=== PATIENT | male | born 1995 | race American Indian/Alaskan Native ===

== ENCOUNTER 2017-06-06 11:26 | Emergency (ER) | payer MEDICAID ==
[2017-06-06 11:34] VITALS: BP 160/84
--- NOTE | 2017-06-06 11:54 | EDM.PDOC ---
ED HPI GENERAL MEDICAL PROBLEM - General Chief Complaint: Respiratory Problem Stated Complaint: ? UPPER RESP INFECTION Time Seen by Provider: 06/06/17 11:45 Source of Information: Reports: Patient History Limitations: Reports: No Limitations - History of Present Illness INITIAL COMMENTS - FREE TEXT/NARRATIVE: This 21 yo male patient reports to the ED with a 3 day history of increasing congestion (head and chest). The patient reports he has been taking OTC medications with little to no symptom relief. The patient reports his child was diagnosed with an URI last week and believes he may have the same thing. Onset Date: 06/04/17 Duration: Constant, Getting Worse Location: Reports: Head, Chest Quality: Reports: Dull, Pressure Severity: Moderate Improves with: Reports: None Worsens with: Reports: None Associated Symptoms: Reports: No Other Symptoms Treatments [employer]: Reports: Other Medication(s) Headache Pain Score (Numeric/FACES): 5 - Related Data Allergies Allergy/AdvReac Type Severity Reaction Status Date / Time No Known Allergies Allergy Verified 06/06/17 11:39 Home Meds: Home Meds . [No Known Home Meds] 06/06/17 [History] Past Medical History - Past Health History Medical/Surgical History: Denies Medical/Surgical History Musculoskeletal History: Reports: Fracture - Infectious Disease History Infectious Disease History: Reports: Chicken Pox Social & Family History - Family History Family Medical History: Noncontributory - Tobacco Use Smoking Status *Q: Never Smoker Second Hand Smoke Exposure: Yes - Caffeine Use Caffeine Use: Reports: Soda - Alcohol Use Days Per Week of Alcohol Use: 0 - Recreational Drug Use Recreational Drug Use: No ED ROS GENERAL - Review of Systems Review Of Systems: ROS reveals no pertinent complaints other than HPI. ED EXAM, GENERAL - Physical Exam Exam: See Below Exam Limited By: No Limitations General Appearance: Alert, WD/WN, Mild Distress Eye Exam: Bilateral Eye: EOMI, Normal Inspection, PERRL Ears: Normal External Exam, Normal Canal, Hearing Grossly Normal, Normal TMs Nose: Normal Inspection, Normal Mucosa, No Blood, Clear Rhinorrhea Throat/Mouth: Normal Inspection, Normal Lips, Normal Teeth, Normal Gums, Normal Voice, No Airway Compromise, Other (posterior pharynx erythematous) Head: Atraumatic, Normocephalic Neck: Normal Inspection, Supple, Non-Tender, Full Range of Motion Respiratory/Chest: No Respiratory Distress, Lungs Clear, Normal Breath Sounds, No Accessory Muscle Use, Chest Non-Tender Cardiovascular: Normal Peripheral Pulses, Regular Rate, Rhythm, No Edema, No Gallop, No JVD, No Murmur, No Rub GI/Abdominal: Normal Bowel Sounds, Soft, Non-Tender, No Organomegaly, No Distention, No Abnormal Bruit, No Mass (Male) Exam: Deferred Rectal (Males) Exam: Deferred Back Exam: Normal Inspection, Full Range of Motion, NT Extremities: Normal Inspection, Normal Range of Motion, Non-Tender, Normal Capillary Refill, No Pedal Edema Neurological: Alert, Oriented, CN II-XII Intact, Normal Cognition, Normal Gait, Normal Reflexes, No Motor/Sensory Deficits Psychiatric: Normal Affect, Normal Mood Skin Exam: Warm, Dry, Intact, Normal Color, No Rash Lymphatic: No Adenopathy Course - Vital Signs Last Recorded V/S: Last Vital Signs Temp 37.1 C 06/06/17 11:33 Pulse 85 06/06/17 11:33 Resp 18 06/06/17 11:33 BP 160/84 H 06/06/17 11:33 Pulse Ox 99 06/06/17 11:33 - Orders/Labs/Meds Orders: Active Orders 24 hr Category Date Time Status Chest 2V [CR] Urgent Exams 06/06/17 11:50 Taken CULTURE STREP A CONFIRMATION [] Stat Lab 06/06/17 11:51 Results STREP SCRN A RAPID W CULT CONF [] Stat Lab 06/06/17 11:51 Results Labs: Laboratory Tests 06/06/17 06/06/17 Range/Units 11:56 11:56 WBC 13.8 H (5.0-10.0) 10^3/uL RBC 5.46 (4.6-6.2) 10^6/uL Hgb 16.4 (14.0-18.0) g/dL Hct 47.4 (40.0-54.0) % MCV 86.8 (80-100) fL MCH 30.0 (27.0-34.0) pg MCHC 34.6 (33.0-35.0) g/dL Plt Count 256 (150-450) 10^3/uL Neut % (Auto) 71.9 (42.2-75.2) % Lymph % (Auto) 13.8 L (20.5-50.1) % Day % (Auto) 11.3 H (2-8) % Eos % (Auto) 2.7 (1.0-3.0) % Baso % (Auto) 0.3 (0.0-1.0) % Sodium 140 (135-145) mmol/L Potassium 3.4 L (3.6-5.0) mmol/L Chloride 104 (101-111) mmol/L Carbon Dioxide 26.0 (21.0-31.0) mmol/L Anion Gap 13.4 BUN 10 (7-18) mg/dL Creatinine 0.9 (0.6-1.3) mg/dL Est Cr Clr Drug Dosing 128.74 mL/min Estimated GFR (MDRD) > 60 BUN/Creatinine Ratio 11.11 Glucose 99 (74-105) mg/dL Calcium 9.3 (8.4-10.2) mg/dl Total Bilirubin 1.0 (0.2-1.0) mg/dL AST 35 (10-42) IU/L ALT 45 (10-60) IU/L Alkaline Phosphatase 85 (42-121) IU/L Total Protein 8.1 (6.7-8.2) g/dl Albumin 5.0 (3.2-5.5) g/dl Globulin 3.1 Albumin/Globulin Ratio 1.61 Departure - Departure Time of Disposition: 12:24 Disposition: Home, Self-Care 01 Condition: Fair Clinical Impression: URI (upper respiratory infection) Qualifiers: URI type: unspecified URI Qualified Code(s): J06.9 - Acute upper respiratory infection, unspecified - Discharge Information Instructions: Upper Respiratory Infection, Adult, [id number] Forms: ED Department Discharge Care Plan Goals: The patient was advised of the examination, lab and x-ray results during the visit. The patient was given a script for Augmentin (500/125) to take 1 by mouth 3 times per day for 7 days. The patient may continue to take over the counter medications for temporary symptom relief. If the patient has any additional symptoms or concerns, the patient should follow-up with his primary care facility or return to the emergency department. - My Orders Last 24 Hours: My Active Orders 06/06/17 11:50 Chest 2V [CR] Urgent 06/06/17 11:51 CULTURE STREP A CONFIRMATION [RM] Stat STREP SCRN A RAPID W CULT CONF [RM] Stat - Assessment/Plan Last 24 Hours: My Active Orders 06/06/17 11:50 Chest 2V [CR] Urgent 06/06/17 11:51 CULTURE STREP A CONFIRMATION [RM] Stat STREP SCRN A RAPID W CULT CONF [RM] Stat
[2017-06-06 12:22] LABS: CHLORIDE,CL 104 mmol/L (101-111); SODIUM,NA 140 mmol/L (135-145)
== END 2017-06-06 12:31 | disposition home or self-care (01) ==
LOC: DL.ED 11:26
DX: J06.9 Acute upper respiratory infection, unspecified (principal)
CPT/HCPCS: 36415; 71020; 80053; 85025; 87081; 87430; 99283

== ENCOUNTER 2017-12-14 11:38 | Emergency (ER) | payer MEDICAID ==
[2017-12-14 11:48] VITALS: BP 162/98
[2017-12-14] MEDS ORDERED: methylPREDNISolone Sodium Succinate 125 MG/2 ML SDV IM ONE ×2 (12:01→12:13)
[2017-12-14] MEDS ORDERED: Penicillin G Benzathine/Procaine 600-600 1.2 Millunits/2 ML Syringe IM ONE (12:09)
--- NOTE | 2017-12-14 15:04 | EDM.PDOC ---
Scribed by Renetta Donis 12/14/17 1214 for Shanita Tyson NP ED HPI GENERAL MEDICAL PROBLEM - General Chief Complaint: ENT Problem Stated Complaint: alergic creaction? Time Seen by Provider: 12/14/17 11:45 Source of Information: Reports: Patient, RN, RN Notes Reviewed History Limitations: Reports: No Limitations - History of Present Illness INITIAL COMMENTS - FREE TEXT/NARRATIVE: Patient presents to the ER with complaint of swelling in the throat. States pain in roof of mouth with swallowing. Denies sore throat. States his uvula is swollen and bothering him. No fever, chills, nausea, vomiting, diarrhea, chest pain, shortness of breath, cold, cough or congestion recently. Duration: Getting Worse Location: Reports: Other (throat) Quality: Reports: Ache Severity: Mild Improves with: Reports: None Worsens with: Reports: None Associated Symptoms: Reports: No Other Symptoms Throat Pain Score (Numeric/FACES): 5 - Related Data Allergies Allergy/AdvReac Type Severity Reaction Status Date / Time No Known Allergies Allergy Verified 12/14/17 11:45 Home Meds: Home Meds . [No Known Home Meds] 06/06/17 [History] Past Medical History - Past Health History Medical/Surgical History: Denies Medical/Surgical History HEENT History: Reports: Impaired Vision Musculoskeletal History: Reports: Fracture - Infectious Disease History Infectious Disease History: Reports: Chicken Pox Social & Family History - Family History Family Medical History: Noncontributory - Tobacco Use Smoking Status *Q: Never Smoker Second Hand Smoke Exposure: No - Caffeine Use Caffeine Use: Reports: Soda - Recreational Drug Use Recreational Drug Use: No ED ROS ENT - Review of Systems Review Of Systems: ROS reveals no pertinent complaints other than HPI. ED EXAM, ENT - Physical Exam Exam: See Below Exam Limited By: No Limitations Eye Exam: Bilateral Eye: EOMI, Normal Inspection Ears: Normal External Exam, Normal Canal, Hearing Grossly Normal, Normal TMs Nose: Normal Inspection, Normal Mucousa, No Blood Mouth/Throat: Other (throat erythematous and mild swelling.) Head: Atraumatic, Normocephalic Neck: Normal Inspection, Supple, Non-Tender, Full Range of Motion Respiratory/Chest: No Respiratory Distress, Lungs Clear, Normal Breath Sounds, No Accessory Muscle Use, Chest Non-Tender Cardiovascular: Normal Peripheral Pulses, Regular Rate, Rhythm, No Edema, No Gallop, No JVD, No Murmur, No Rub GI/Abdominal: Normal Bowel Sounds, Soft, Non-Tender, No Organomegaly, No Distention, No Abnormal Bruit, No Mass (Male) Exam: Deferred Rectal (Males) Exam: Deferred Back: Normal Inspection, Full Range of Motion Extremities: Normal Inspection, Normal Range of Motion, Non-Tender, No Pedal Edema, Normal Capillary Refill Neurological: Alert, Oriented, CN II-XII Intact, Normal Cognition, Normal Gait, Normal Reflexes, No Motor/Sensory Deficits Psychiatric: Normal Affect, Normal Mood Skin: Warm, Dry, Intact, Normal Color, No Rash Lymphatic: No Adenopathy Course - Vital Signs Last Recorded V/S: Last Vital Signs Temp 98.8 F 12/14/17 11:46 Pulse 96 12/14/17 11:46 Resp 18 12/14/17 11:46 BP 162/98 H 12/14/17 11:46 Pulse Ox 100 12/14/17 11:46 - Orders/Labs/Meds Orders: Active Orders 24 hr Category Date Time Status CULTURE STREP A CONFIRMATION [] Stat Lab 12/14/17 11:52 Results STREP SCRN A RAPID W CULT CONF [] Stat Lab 12/14/17 11:52 Results Labs: Rapid strep: Negative. Meds: Medications Discontinued Medications Generic Name Dose Route Start Last Admin Trade Name David PRN Reason Stop Dose Admin Methylprednisolone Sodium Succinate 125 mg 12/14/17 12:01 12/14/17 12:09 Solu-Medrol IM 12/14/17 12:02 Not Given ONETIME ONE Methylprednisolone Sodium Succinate 125 mg 12/14/17 12:13 12/14/17 12:18 Solu-Medrol IM 12/14/17 12:14 125 mg ONETIME ONE Administration Penicillin G Procaine/Benzathine 1.2 millunits 12/14/17 12:09 12/14/17 12:19 Bicillin C-R 600/600 IM 12/14/17 12:10 1.2 millunits ONETIME ONE Administration Departure - Departure Time of Disposition: 12:22 Disposition: Home, Self-Care 01 Condition: Fair Clinical Impression: Pharyngitis Qualifiers: Pharyngitis/tonsillitis etiology: other specified organisms Qualified Code(s): J02.8 - Acute pharyngitis due to other specified organisms - Discharge Information Instructions: Pharyngitis, [id number] Forms: ED Department Discharge Additional Instructions: Ibuprofen and/or Tylenol as directed for pain/fever Drink plenty of water Follow up with your primary care facility Return to ER with any further pain or trouble breathing - My Orders Last 24 Hours: My Active Orders 12/14/17 11:52 CULTURE STREP A CONFIRMATION [RM] Stat STREP SCRN A RAPID W CULT CONF [RM] Stat - Assessment/Plan Last 24 Hours: My Active Orders 12/14/17 11:52 CULTURE STREP A CONFIRMATION [RM] Stat STREP SCRN A RAPID W CULT CONF [RM] Stat I have read and agree with the documentation that has been completed regarding this visit. By signing this record, I attest that the documentation was completed in my physical presence and is an accurate record of the encounter.
== END 2017-12-14 12:24 | disposition home or self-care (01) ==
LOC: DL.ED 11:38
DX: J02.8 Acute pharyngitis due to other specified organisms (principal)
CPT/HCPCS: 87081; 87430; 96372; 99283; J0558; J2930

== ENCOUNTER 2018-01-21 06:47 | Emergency (ER) | payer MEDICAID ==
--- NOTE | 2018-01-21 07:01 | EDM.PDOC ---
ED HPI GENERAL MEDICAL PROBLEM - General Chief Complaint: ENT Problem Stated Complaint: ALLERGIC REACT. THROAT CLOSING Time Seen by Provider: 01/21/18 07:01 Source of Information: Reports: Patient, RN, RN Notes Reviewed History Limitations: Reports: No Limitations - History of Present Illness INITIAL COMMENTS - FREE TEXT/NARRATIVE: Pt presents to ER from home by POV with c/o that his uvula feels swollen, and his throat feels irritated "like it might swell". Pt states he had a couple of similar episodes in the past year, and required some injections to make the reaction go away. The pt believes that he is allergic to pasta. He states that pasta noodles are the only common thing that preceded all of his past reactions. He has tried eliminating meat from the pasta sauce, and eliminated tomato based sauce, but even plain pasta makes is throat swell. He denies difficulty breathing, or wheezing. Pt states he ate spaghetti at 2AM and woke between 5 and 6AM with the symptoms. Onset: Today Duration: Constant Location: Reports: Other (throat) Quality: Reports: Other (swelling) Severity: Moderate Improves with: Reports: None Worsens with: Reports: None Associated Symptoms: Reports: No Other Symptoms Throat Pain Score (Numeric/FACES): 2 - Related Data Allergies Allergy/AdvReac Type Severity Reaction Status Date / Time No Known Allergies Allergy Verified 01/21/18 06:58 Home Meds: Home Meds . [No Known Home Meds] 06/06/17 [History] Past Medical History - Past Health History Medical/Surgical History: Denies Medical/Surgical History HEENT History: Reports: Impaired Vision Musculoskeletal History: Reports: Fracture Immunologic History: Reports: Other (See Below) (Food and environmental allergies) - Infectious Disease History Infectious Disease History: Reports: Chicken Pox Social & Family History - Family History Family Medical History: Noncontributory - Caffeine Use Caffeine Use: Reports: Soda - Living Situation & Occupation Living situation: Reports: , with Family ED ROS ENT - Review of Systems Review Of Systems: ROS reveals no pertinent complaints other than HPI. ED EXAM, ENT - Physical Exam Exam: See Below Exam Limited By: No Limitations General Appearance: Alert, WD/WN, No Apparent Distress, Obese Eye Exam: Bilateral Eye: EOMI, Normal Inspection, PERRL Ears: Normal External Exam, Hearing Grossly Normal Nose: Normal Inspection, Normal Mucousa, No Blood Mouth/Throat: Normal Gums, Normal Lips, Normal Teeth, Pharyngeal Erythema (mild , no exudates), Uvular Edema (mild). No: Gum Swelling, Hoarse Voice, Lip Swelling, Muffled Voice, Throat Swelling, Tongue Swelling, Tonsillar Erythema, Tonsillar Exudates, Tonsillar Swelling, Uvular Deviation Head: Atraumatic, Normocephalic Neck: Normal Inspection, Supple, Non-Tender, Full Range of Motion Respiratory/Chest: No Respiratory Distress, Lungs Clear, Normal Breath Sounds, No Accessory Muscle Use, Chest Non-Tender Cardiovascular: Regular Rate, Rhythm GI/Abdominal: Normal Bowel Sounds, Soft, Non-Tender Back: Normal Inspection Extremities: Normal Inspection Neurological: Alert, No Motor/Sensory Deficits Psychiatric: Normal Affect, Normal Mood Skin: Warm, Dry, Intact, Normal Color, No Rash Course - Vital Signs Last Recorded V/S: Last Vital Signs Temp 36.3 C 01/21/18 06:58 Pulse 83 01/21/18 06:58 Resp 16 01/21/18 06:58 BP 142/83 H 01/21/18 06:58 Pulse Ox 100 01/21/18 06:58 - Orders/Labs/Meds Orders: Active Orders 24 hr Category Date Time Status CULTURE STREP A CONFIRMATION [] Stat Lab 01/21/18 07:13 Results STREP SCRN A RAPID W CULT CONF [] Stat Lab 01/21/18 07:13 Results Labs: Rapid Strep: negative Meds: Medications Discontinued Medications Generic Name Dose Route Start Last Admin Trade Name David PRN Reason Stop Dose Admin Dexamethasone 4 mg 01/21/18 07:11 01/21/18 07:19 Dexamethasone IM 01/21/18 07:12 4 mg ONETIME ONE Administration Diphenhydramine HCl 25 mg 01/21/18 07:11 01/21/18 07:19 Benadryl PO 01/21/18 07:12 25 mg ONETIME ONE Administration Departure - Departure Time of Disposition: 07:37 Disposition: Home, Self-Care 01 Condition: Good Clinical Impression: Food allergy, Uvular swelling - Discharge Information Instructions: Food Allergy, [id number] Forms: ED Department Discharge Additional Instructions: Use over the counter Benadryl (Diphenhydramine) 25mg: Take 2 tablets by mouth at first sign of allergic reaction, then take 1 or 2 tablets every 6 hours as needed. Do not drive or work for 8 hours after taking Benadryl. Follow up with your clinic doctor to see if allergy testing is needed. - My Orders Last 24 Hours: My Active Orders 01/21/18 07:13 CULTURE STREP A CONFIRMATION [RM] Stat STREP SCRN A RAPID W CULT CONF [RM] Stat - Assessment/Plan Last 24 Hours: My Active Orders 01/21/18 07:13 CULTURE STREP A CONFIRMATION [RM] Stat STREP SCRN A RAPID W CULT CONF [] Stat
[2018-01-21 07:03] VITALS: BP 142/83
[2018-01-21] MEDS ORDERED: Dexamethasone 4 MG/ML SDV IM ONE (07:11)
[2018-01-21] MEDS ORDERED: diphenhydrAMINE 25 MG Tab PO ONE (07:11)
== END 2018-01-21 07:51 | disposition home or self-care (01) ==
LOC: DL.ED 06:47
DX: T78.1XXA Other adverse food reactions, not elsewhere classified, initial encounter (principal); K13.79 Other lesions of oral mucosa
CPT/HCPCS: 87081; 87430; 96372; 99282; A9270; J1100

== ENCOUNTER 2018-02-27 15:31 | Emergency (ER) | payer MEDICAID ==
[2018-02-27] MEDS ORDERED: Dexamethasone 4 MG/ML SDV IM ONE (17:31)
--- NOTE | 2018-02-27 17:33 | EDM.PDOC ---
ED HPI GENERAL MEDICAL PROBLEM - General Chief Complaint: ENT Problem Stated Complaint: COLD [id number] Time Seen by Provider: 02/27/18 16:00 - History of Present Illness INITIAL COMMENTS - FREE TEXT/NARRATIVE: Conner has a history of posterior oropharynx and uvula swelling. He states it occurred again at lunchtime today, after he had goulash (pasta). He tried taking a dose of benadryl at home, and initially it seemed to be improving, but then again began to swell. He has had no difficulty swallowing, no difficulty breathing. - Related Data Allergies Allergy/AdvReac Type Severity Reaction Status Date / Time No Known Allergies Allergy Verified 02/27/18 15:44 Home Meds: Home Meds . [No Known Home Meds] 06/06/17 [History] Past Medical History - Past Health History Medical/Surgical History: Denies Medical/Surgical History HEENT History: Reports: Impaired Vision Musculoskeletal History: Reports: Fracture Immunologic History: Reports: Other (See Below) - Infectious Disease History Infectious Disease History: Reports: Chicken Pox Social & Family History - Family History Family Medical History: Noncontributory - Tobacco Use Smoking Status *Q: Never Smoker Second Hand Smoke Exposure: No - Caffeine Use Caffeine Use: Reports: Soda - Recreational Drug Use Recreational Drug Use: No - Living Situation & Occupation Living situation: Reports: , with Family ED ROS ENT - Review of Systems Review Of Systems: ROS reveals no pertinent complaints other than HPI. ED EXAM, ENT - Physical Exam Exam: See Below General Appearance: Alert, WD/WN, No Apparent Distress Ears: Normal External Exam, Normal TMs Mouth/Throat: Uvular Edema Neck: Supple, Non-Tender Respiratory/Chest: Lungs Clear Cardiovascular: Regular Rate, Rhythm Course - Vital Signs Last Recorded V/S: Last Vital Signs Temp 36.8 C 02/27/18 17:39 Pulse 74 02/27/18 17:39 Resp 15 02/27/18 17:39 BP 147/97 H 02/27/18 17:39 Pulse Ox 100 02/27/18 17:39 - Orders/Labs/Meds Meds: Medications Discontinued Medications Generic Name Dose Route Start Last Admin Trade Name Freq PRN Reason Stop Dose Admin Dexamethasone 8 mg 02/27/18 17:31 02/27/18 17:37 Dexamethasone IM 02/27/18 17:32 8 mg ONETIME ONE Administration Departure - Departure Time of Disposition: 18:00 Disposition: Home, Self-Care 01 Clinical Impression: Allergic reaction Qualifiers: Encounter type: initial encounter Qualified Code(s): T78.40XA - Allergy, unspecified, initial encounter - Discharge Information *PRESCRIPTION DRUG MONITORING PROGRAM REVIEWED*: Not Applicable *COPY OF PRESCRIPTION DRUG MONITORING REPORT IN PATIENT NIGEL: Not Applicable Forms: ED Department Discharge - Problem List & Annotations (1) Uvular swelling SNOMED Code(s): 471980277 Code(s): K13.79 - OTHER LESIONS OF ORAL MUCOSA Status: Acute (2) Allergic reaction SNOMED Code(s): 439870113 Code(s): T78.40XA - ALLERGY, UNSPECIFIED, INITIAL ENCOUNTER Status: Acute Qualifiers: Encounter type: initial encounter Qualified Code(s): T78.40XA - Allergy, unspecified, initial encounter - Problem List Review Problem List Initiated/Reviewed/Updated: Yes - Assessment/Plan Plan: 1. Conner was given 8 mg IM dexamethasone prior to discharge. He will follow up with his PCP if he continues to have difficulty
[2018-02-27 17:41] VITALS: BP 147/97
== END 2018-02-27 17:44 | disposition home or self-care (01) ==
LOC: DL.ED 15:31
DX: T78.40XA Allergy, unspecified, initial encounter (principal); K13.79 Other lesions of oral mucosa
CPT/HCPCS: 96372; 99283; J1100